=== PATIENT | female | born 2000 | race Caucasian/White ===

== ENCOUNTER → 2024-07-19 12:45 | Outpatient (BNV) | payer OTHER, SELFPAY | PROVIDERS: Visit Provider Psychiatry & Neurology Psychiatry | DX: F43.10 Post-traumatic stress disorder, unspecified (principal); F42.8 Other obsessive-compulsive disorder; F41.1 Generalized anxiety disorder; F33.8 Other recurrent depressive disorders | CPT/HCPCS: 90792; 99212 ==

== ENCOUNTER 2024-07-29 12:45 | Outpatient (RCR) | payer OTHER, SELFPAY ==
[2024-07-18 10:54] VITALS: BMI 34.8
[2024-07-18 10:55] VITALS: BP 108/62; PULSE 68; TEMP 36.6
--- NOTE | 2024-07-18 11:38 | PC.ADMIT ---
Patient is a 24 year old partnered female who was referred to PHP by [facility] where she was seen by crisis d/t increased anxiety with panic attacks. Patient reports history of PMDD. Patient has not worked in 2 years d/t anxiety and feels stuck in her life. Would like to be able to work and that is one of her goals of treatment. Patient also reports her mother was dx with Glioblastoma which is contributing to her anxiety and depression sxs. Patient reports that she started using Marijuana a year and a half ago vaping using 2-10 puffs 3-4 times a week. Patient is alert and oriented x4. Calm and cooperative. Presented with depressed mood and anxious affect. Denied SI. Patient stated, When I am in the depths of MPDD I have passing thoughts no plans no intent. It is scary. Patient was given a copy of her safety plan if needed. Patient reports supports as her boyfriend, father, and friends. Patient lives with her boyfriends mother and brother. Medications reconciled with patient and patient's pharmacy. Takes medications as prescribed.
--- NOTE | 2024-07-18 16:39 | HO.PHP ---
Client's case has been opened and reviewed in team.
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
--- NOTE | 2024-07-23 08:38 | HO.PHP ---
PHP admin, Leticia, informed the team that Manuela will not be in attendance to program today due to being sick. No safety concerns were presented and she will be in attendance to program tomorrow.
--- NOTE | 2024-07-29 13:29 | HO.PHPPROGNO ---
Subjective Subjective Date of Service: 07/29/24 Reason For Visit: PMDD,anxiety Diagnostics Vital Signs (24Hr): BMI result Body Mass Index 34.8 Assessment & Plan Certification I certify that partial hospital treatment is medically necessary due to the symptoms and problems resulting from the patient's mental illness and the failure to treat the patient at the partial hospital level of care would likely result in the patient requiring inpatient psychiatric care which could not be prevented at a less intensive level of care. Total time managing care of this patient today ____ minutes. Discharge Plan Discharge Attending provider: Noa Sanchez Medications: Continued norgestimate-ethinyl estradiol [Estarylla] 0.25-35 mg-mcg tablet 1 tab PO DAILY Rx Instructions: Last filled 06/25/24 albuterol sulfate 90 mcg/actuation HFA aerosol inhaler 2 puff INHALATION Q6H PRN (Reason: sob) Rx Instructions: Last filled 06/18/24 hydroxyzine pamoate 25 mg capsule 25 mg PO BEDTIME PRN (Reason: Anxiety) bupropion HCl 150 mg tablet extended release 24 hr 150 mg PO DAILY Rx Instructions: Last filled 06/20/24 propranolol 10 mg tablet 10 mg PO Q12H Rx Instructions: Last filled 07/03/24 lorazepam 1 mg Tablet 1 mg PO DAILY PRN (Reason: Anxiety) quetiapine 25 mg tablet 12.5 - 25 mg PO BID PRN (Reason: anxiety) Rx Instructions: Last filled 07/10/24 trazodone 100 mg Tablet 100 mg PO BEDTIME PRN (Reason: Insomnia) Rx Instructions: Last filled 05/22/2023. Patient stated she takes PRN. sertraline 100 mg tablet 200 mg PO DAILY quetiapine [Seroquel XR] 50 mg Tablet Extended Release 24 Hr 100 mg PO BEDTIME Rx Instructions: Last filled 07/10/24. patient stated she takes 2 tabs at HS daily. Print Language: Jordanian
--- NOTE | 2024-08-01 15:50 | P.PNPSP_ITS ---
Subjective Subjective Date of Service: 08/01/24 Reason For Visit: PMDD,anxiety Interim History: Spoke with patient by phone who called out today from program. I'm out sick with a stomach bug . She reports her symptoms are starting to resolve. She reports overall her time at [facility] was good and was scheduled for discharge today. She denies having any issues with medications. There were no changes made aside from being started on nicotine patch, which she has set her quit day for New Years. 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 Says it has caused some upheaval in her mood but was able to get her script today and has started back on them and says she should feel back to her self in a few days. She is prescribed OCP for PMDD for the past 2 months and has found this to be highly effective in regulating her mood. She denies any other issues. She denies any hopelessness, helplessness or SI. She feels taking the Seroquel XR BID has really stabilized her and she has not been neeing the PRN seroquel nor has been needing her other PRN as regularly either. Sleeping a lot in [place] past few days due to illness. No refills needed at this time. She has an upcoming provider appointment on Aug 14. Medication Compliance: Yes Side effects from medications: No Mental Status Exam Mental Status Exam Narrative: Alert, oriented, in no acute distress. Mood stable, affect variable, mood congruent. Speech normal. Goal-directed, future-oriented, denies any hopelessness or SI. Denies any aggressive ideation or HI. No evidence of psychosis. Insight and judgment fair to good. Diagnostics Vital Signs (24Hr): BMI result Body Mass Index 34.8 Assessment & Plan Assessment & Plan (1) Complex posttraumatic stress disorder: Status: Acute Code(s): F43.10 - Post-traumatic stress disorder, unspecified (2) Other obsessive-compulsive disorder: Status: Acute Code(s): F42.8 - Other obsessive-compulsive disorder (3) AMANDO (generalized anxiety disorder): Status: Acute Code(s): F41.1 - Generalized anxiety disorder (4) Other recurrent depressive disorders: Status: Acute Code(s): F33.8 - Other recurrent depressive disorders Assessment and Plan: h/o PMDD (recently stabilized with OCP) likely MDD, recurrent, moderate vs other depressive disorder denies seasonal component of depression, feels depression 2/t anxiety/OCD Plan Discharge from [facility] continue regular medications? No safety concerns at this time Will defer further mediation management to outpatient provider Patient educated on: diagnosis and medication risk/benefits Informed Consent: understands Reason for contiued partial hosp. stay Substantial Risk for: stable for discharge Certification I certify that partial hospital treatment is medically necessary due to the symptoms and problems resulting from the patient's mental illness and the failure to treat the patient at the partial hospital level of care would likely result in the patient requiring inpatient psychiatric care which could not be prevented at a less intensive level of care. Total time managing care of this patient today __20__ minutes. Discharge Plan Discharge Attending provider: Noa Sanchez Medications: New nicotine [Nicoderm CQ] 7 mg/24 hr patch 24 hour 1 patch transdermal Q24H Qty: 14 0RF Rx Instructions: apply 1 patch to skin daily in AM; remove patch daily at bedtime Continued norgestimate-ethinyl estradiol [Estarylla] 0.25-35 mg-mcg tablet 1 tab PO DAILY Rx Instructions: Last filled 06/25/24 albuterol sulfate 90 mcg/actuation HFA aerosol inhaler 2 puff INHALATION Q6H PRN (Reason: sob) Rx Instructions: Last filled 06/18/24 hydroxyzine pamoate 25 mg capsule 25 mg PO BEDTIME PRN (Reason: Anxiety) bupropion HCl 150 mg tablet extended release 24 hr 150 mg PO DAILY Rx Instructions: Last filled 06/20/24 propranolol 10 mg tablet 10 mg PO Q12H Rx Instructions: Last filled 07/03/24 quetiapine 25 mg tablet 12.5 - 25 mg PO BID PRN (Reason: anxiety) Rx Instructions: Last filled 07/10/24 trazodone 100 mg Tablet 100 mg PO BEDTIME PRN (Reason: Insomnia) Rx Instructions: Last filled 05/22/2023. Patient stated she takes PRN. sertraline 100 mg tablet 200 mg PO DAILY quetiapine [Seroquel XR] 50 mg Tablet Extended Release 24 Hr 100 mg PO BEDTIME Rx Instructions: Last filled 07/10/24. patient stated she takes 2 tabs at HS daily. Changed lorazepam 1 mg Tablet 0.5 - 1 mg PO DAILY PRN (Reason: Anxiety) Qty: 7 0RF Stand Alone Forms: Patient Portal Discharge page Print Language: Namibian Telehealth Telehealth Telehealth Platform: Telephone
--- NOTE | 2024-08-02 09:42 | PM.EVENT ---
Event Note Date of Service: 08/01/24 Event Note: Spoke with patient by phone who called out today from program. I'm out sick with a stomach bug . She reports overall her time at [facility] was good and was scheduled for discharge today. She denies having any issues with medications. There were no changes made aside from being started on nicotine patch, which she has set her quit day for New Years. She reports overall she had been feeling good until she became ill. 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 Says it has caused some upheaval in her mood but was able to get her script today and has started back on them and says she should feel back to her self in a few days. She is prescribed OCP for PMDD for the past 2 months and has found this to be highly effective in regulating her mood. She denies any other issues. She denies any hopelessness, helplessness or SI. She feels taking the Seroquel XR BID has really stabilized her and she has not been neeing the PRN seroquel nor has been needing her other PRN as regularly either. Sleeping a lot in [place] past few days due to illness. No refills needed at this time. She has an upcoming provider appointment on Aug 14. Time Spent With Patient Time: Total time managing care of this patient today __20__ minutes.
== END 2024-07-29 23:59 | disposition home or self-care (01) ==
LOC: HO.PHPA 12:45
PROVIDERS: Visit Provider Psychiatry & Neurology Psychiatry
DX: F43.10 Post-traumatic stress disorder, unspecified (principal); F42.8 Other obsessive-compulsive disorder; F41.1 Generalized anxiety disorder; F33.8 Other recurrent depressive disorders
CPT/HCPCS: 90791; 90853